=== PATIENT | male | born 1985 | race African-American/Black ===

== ENCOUNTER 2019-05-10 10:54 | Emergency (ER) | payer OTHER ==
[~2019-05-10] VITALS: Ht 172.7 cm; Wt 75.0 kg
[2019-05-10] MEDS ORDERED: TETANUS, DIPHTHERIA, PERTUSSIS VAC/PF 0.5ML (>7YR OLD) IM ONE (11:30)
[2019-05-10] MEDS ORDERED: IBUPROFEN 600MG TABLET PO ONE ×2 (11:30→11:45)
[2019-05-10 12:00] VITALS: BP 134/98
== END 2019-05-10 12:20 | disposition home or self-care (01) ==
LOC: ER 10:54
DX: L03.011 Cellulitis of right finger (principal); F99 Mental disorder, not otherwise specified
CPT/HCPCS: 99283

== ENCOUNTER 2021-08-07 08:33 | Emergency (ER) | payer BC, OTHER ==
[~2021-08-07] VITALS: Ht 180.3 cm; Wt 91.0 kg
[2021-08-07] MEDS ORDERED: LORAZEPAM 2MG/ML CPJ IV STA (08:38)
[2021-08-07] MEDS ORDERED: SODIUM CHLORIDE 0.9% 1,000 ML IV ONE (08:45)
[2021-08-07] MEDS ORDERED: OLANZAPINE 10 MG/VIAL IM ONE (09:00)
[2021-08-07] MEDS ORDERED: LORAZEPAM 2MG/ML CPJ IV ONE (09:00)
[2021-08-07] MEDS ORDERED: LORAZEPAM 2MG/ML CPJ IM PRN (09:45)
[2021-08-07 10:28] LABS: BASOPHILS % 0.3 % (0.0-2.0); HEMATOCRIT. 35.3 % (42.0-52.0); LYMPHOCYTES % 19.2 % (20.0-50.0); MEAN CORPUSCULAR HEMOGLOBIN 35.6 pg (28.0-32.0); MEAN CORPUSCULAR VOLUME 104.7 fL (80.0-94.0); MONOCYTES % 9.3 % (2.0-8.0); NEUTROPHILS % 70.2 % (40.0-76.0); PLATELET 265 x1000/uL (130-400); RED BLOOD CELL COUNT 3.37 mill/uL (4.7-6.1); RED CELL DISTRIBUTION WIDTH 12.2 % (11.6-14.6)
[2021-08-07 10:35] LABS: CHLORIDE 107 mEq/L (98-107)
[2021-08-07 10:44] LABS: ETHANOL BLOOD < 10 mg/dL
[2021-08-07 12:03] LABS: CLARITY URINE CLEAR (CLEAR); COLOR URINE YELLOW (YELLOW); KETONES URINE NEGATIVE (NEGATIVE); LEUKOCYTE ESTERASE URINE NEGATIVE (NEGATIVE); NITRITE URINE NEGATIVE (NEGATIVE); OCCULT BLOOD URINE NEGATIVE (NEGATIVE); PROTEIN URINE NEGATIVE (NEGATIVE); UROBILINOGEN URINE 0.2 E.U./dL (0.2-1.0)
[2021-08-07 12:37] LABS: *AMPHETAMINES SCREEN URINE PRESUMTIVE POSITIVE (NEGATIVE); *BARBITURATES SCREEN URINE NEGATIVE (NEGATIVE); *BENZODIAZEPINES SCREEN URINE PRESUMTIVE POSITIVE (NEGATIVE); *COCAINE SCREEN URINE NEGATIVE (NEGATIVE); CANNABINOID URINE SCREEN PRESUMTIVE POSITIVE (NEGATIVE); METHADONE URINE SCREEN NEGATIVE (NEGATIVE); OPIATES URINE SCREEN NEGATIVE (NEGATIVE); PHENCYCLIDINE URINE SCREEN NEGATIVE (NEGATIVE)
[2021-08-07 14:00] VITALS: BP 115/60
== END 2021-08-07 14:25 | disposition home or self-care (01) ==
LOC: ER 08:50
DX: R45.6 Violent behavior (principal); Z98.890 Other specified postprocedural states
CPT/HCPCS: 36415; 80053; 80305; 80307; 80320; 80329; 81003; 85025; 96360; 96372; 99291; J3490; J7030; J2060; G0480

== ENCOUNTER 2021-08-08 14:34 | Emergency (ER) | payer BC, OTHER ==
[~2021-08-08] VITALS: Ht 172.7 cm; Wt 68.0 kg
[2021-08-08 14:46] VITALS: BP 148/98
[2021-08-08] MEDS ORDERED: LORAZEPAM 1MG TABLET PO ONE (15:30)
[2021-08-08 15:50] LABS: BASOPHILS % 0.8 % (0.0-2.0); EOSINOPHILS % 2.2 % (0.0-5.0); HEMATOCRIT. 37.1 % (42.0-52.0); HEMOGLOBIN. 12.7 g/dL (14.0-18.0); LYMPHOCYTES % 17.5 % (20.0-50.0); MEAN CORPUSCULAR HEMOGLOBIN 35.6 pg (28.0-32.0); MEAN PLATELET VOLUME 8.9 fl (7.4-10.4); MONOCYTES % 8.6 % (2.0-8.0); NEUTROPHILS % 70.9 % (40.0-76.0); PLATELET 290 x1000/uL (130-400); RED BLOOD CELL COUNT 3.56 mill/uL (4.7-6.1); RED CELL DISTRIBUTION WIDTH 12.4 % (11.6-14.6)
[2021-08-08 16:01] LABS: CHLORIDE 109 mEq/L (98-107)
[2021-08-08 16:08] LABS: ETHANOL BLOOD < 10 mg/dL
== END 2021-08-08 16:15 | disposition home or self-care (01) ==
LOC: ER 14:49
DX: R45.1 Restlessness and agitation (principal); R03.0 Elevated blood-pressure reading, without diagnosis of hypertension; F15.90 Other stimulant use, unspecified, uncomplicated
CPT/HCPCS: 36415; 80053; 80307; 80320; 80329; 85025; 99283; G0480

== ENCOUNTER 2021-08-08 17:29 | Emergency (ER) | payer BC, OTHER ==
[~2021-08-08] VITALS: Ht 172.7 cm; Wt 80.0 kg
[2021-08-08] MEDS ORDERED: LORAZEPAM 1MG TABLET PO ONE (18:15)
[2021-08-08] MEDS: OLANZAPINE 10MG TABLET PO SCH (18:41)
[2021-08-08 18:48] LABS: BASOPHILS % 0.5 % (0.0-2.0); EOSINOPHILS % 1.6 % (0.0-5.0); HEMATOCRIT. 36.1 % (42.0-52.0); HEMOGLOBIN. 12.4 g/dL (14.0-18.0); LYMPHOCYTES % 12.8 % (20.0-50.0); MEAN CORPUSCULAR HEMOGLOBIN 35.8 pg (28.0-32.0); MEAN CORPUSCULAR VOLUME 104.3 fL (80.0-94.0); MEAN PLATELET VOLUME 8.9 fl (7.4-10.4); MONOCYTES % 7.7 % (2.0-8.0); NEUTROPHILS % 77.4 % (40.0-76.0); PLATELET 282 x1000/uL (130-400); RED BLOOD CELL COUNT 3.46 mill/uL (4.7-6.1); RED CELL DISTRIBUTION WIDTH 12.3 % (11.6-14.6)
[2021-08-08 18:54] LABS: CHLORIDE 109 mEq/L (98-107)
[2021-08-08 19:01] LABS: ETHANOL BLOOD < 10 mg/dL
[2021-08-08] MEDS ORDERED: LORAZEPAM 2MG/ML CPJ IM ONE ×2 (19:45→21:30)
[2021-08-08] MEDS ORDERED: DIPHENHYDRAMINE 50MG/ML VIAL IM ONE (19:45)
[2021-08-08 20:12] LABS: CLARITY URINE CLEAR (CLEAR); COLOR URINE YELLOW (YELLOW); KETONES URINE NEGATIVE (NEGATIVE); LEUKOCYTE ESTERASE URINE NEGATIVE (NEGATIVE); NITRITE URINE NEGATIVE (NEGATIVE); OCCULT BLOOD URINE NEGATIVE (NEGATIVE); PROTEIN URINE NEGATIVE (NEGATIVE); SPECIFIC GRAVITY URINE 1.005 (1.005-1.030); UROBILINOGEN URINE 0.2 E.U./dL (0.2-1.0)
[2021-08-08 20:25] LABS: *AMPHETAMINES SCREEN URINE NEGATIVE (NEGATIVE); *BARBITURATES SCREEN URINE NEGATIVE (NEGATIVE); *BENZODIAZEPINES SCREEN URINE NEGATIVE (NEGATIVE); *COCAINE SCREEN URINE NEGATIVE (NEGATIVE); CANNABINOID URINE SCREEN PRESUMTIVE POSITIVE (NEGATIVE); METHADONE URINE SCREEN NEGATIVE (NEGATIVE); OPIATES URINE SCREEN NEGATIVE (NEGATIVE); PHENCYCLIDINE URINE SCREEN NEGATIVE (NEGATIVE)
[2021-08-09] MEDS ORDERED: LORAZEPAM 2MG/ML CPJ IM ONE (00:30)
[2021-08-09] MEDS ORDERED: HALOPERIDOL LACTATE 5MG/ML VIAL IM ONE (00:30)
[2021-08-09] MEDS ORDERED: HALOPERIDOL LACTATE 5MG/ML VIAL IM STA (16:31)
[2021-08-09] MEDS ORDERED: DIPHENHYDRAMINE 50MG/ML VIAL IM ONE (16:45)
[2021-08-09] MEDS: OLANZAPINE 10MG TABLET PO SCH (17:15)
[2021-08-09] MEDS ORDERED: OLANZAPINE 10 MG/VIAL IM ONE (20:00)
[2021-08-10] MEDS: OLANZAPINE 5MG TABLET ODT PO SCH ×2 (09:21→17:20)
[2021-08-11] MEDS: OLANZAPINE 5MG TABLET ODT PO SCH (09:10)
[2021-08-11] MEDS ORDERED: LORAZEPAM 1MG TABLET PO ONE (10:45)
[2021-08-11] MEDS ORDERED: OLAN5TAB3 PO (13:10)
[2021-08-11 13:20] VITALS: BP 135/80
== END 2021-08-11 13:32 | disposition home or self-care (01) ==
LOC: ER 17:29
DX: T40.711A Poisoning by cannabis, accidental (unintentional), initial encounter (principal); R45.851 Suicidal ideations; R45.850 Homicidal ideations; F33.0 Major depressive disorder, recurrent, mild; F12.180 Cannabis abuse with cannabis-induced anxiety disorder; F23 Brief psychotic disorder; Z20.822 Contact with and (suspected) exposure to COVID-19; Y92.89 Other specified places as the place of occurrence of the external cause
CPT/HCPCS: 36415; 80053; 80305; 80307; 80320; 80329; 81003; 85025; 96372; 99285; C9803; J1200; J1630; J2060; J3490; U0003; U0005; G0480